=== PATIENT | male | born 1965 | race American Indian/Alaskan Native ===

== ENCOUNTER 2021-12-14 02:18 | Emergency (ER) | payer SELFPAY ==
[2021-12-14] MEDS ORDERED: KETOROLAC 30 MG/1 ML INJ IV ONE (08:11)
[2021-12-14] MEDS ORDERED: dexAMETHasone 20 MG/5 ML VIAL IV ONE (08:11)
[2021-12-14] MEDS ORDERED: ACETAMINOPHEN W/CODEINE 300-30 MG TAB PO ONE (08:11)
--- NOTE | 2021-12-14 08:14 | Emergency Department Report ---
ED Extremity Problem HPI - General Chief complaint: Extremity Injury, Lower Stated complaint: LEG CRAMPS Source: patient Mode of arrival: Stretcher Limitations: No Limitations - History of Present Illness Initial comments: 55-year-old -[place] male with a known past medical history of hypertension presents to the ER today with complaint of pain to the posterior aspect of his left leg. Patient states that the pain sometimes starts in his left calf and radiates up to his buttocks or sometimes starts in his left buttocks and radiates down to his left calf. Patient states that he has been having these symptoms for about 1 week. He denies any particular injury or str enuous activity prior to onset but he did states that a month ago he pulled on something heavy and started with pain in his lower back. He states that the pain eventually resolved and he resumed his regular activity but at that time he did not have any pain down into his left leg. He states that the pain is worse with certain position. He reports some tingling and numbness into his left toes and left lower leg. He denies any left/right leg weakness. Patient denies any associated abdominal pain, chest pain, bowel or bladder incontinence, saddle anesthesia denies any fever or chills. MD Complaint: extremity pain, other (left buttocks pain) -: week(s) (1) - Related Data Previous Rx's Medication Instructions Recorded Last Taken Type Acetaminophen/Codeine [Tylenol 1 tab PO Q6H PRN #12 tab 12/14/21 Unknown Rx /Codeine # 3 tab] methOCARBAMOL [Robaxin TAB] 500 mg PO Q6H PRN #30 tab 12/14/21 Unknown Rx methylPREDNISolone [Medrol 4MG 4 mg PO DAILY #1 pack 12/14/21 Unknown Rx DOSEPAK (21 tabs)] Allergies Allergy/AdvReac Type Severity Reaction Status Date / Time No Known Allergies Allergy Unverified 12/14/21 05:38 ED Review of Systems ROS: Stated complaint: LEG CRAMPS Other details as noted in HPI Comment: All other systems reviewed and negative Constitutional: denies: chills, fever Respiratory: denies: cough, shortness of breath, wheezing Cardiovascular: denies: chest pain, palpitations Gastrointestinal: denies: abdominal pain, nausea, vomiting, diarrhea, constip ation, hematemesis, hematochezia Genitourinary: denies: urgency, dysuria, frequency, hematuria, discharge, testicular pain, testicular mass Musculoskeletal: back pain Skin: denies: rash, lesions Neurological: numbness, abnormal gait. denies: headache, weakness, paresthesias, confusion, vertigo Psychiatric: denies: anxiety, depression, homicidal thoughts, suicidal thoughts Hematological/Lymphatic: denies: easy bleeding, easy bruising, swollen glands ED Past Medical Hx - Past Medical History Previous Medical History?: Yes Hx Hypertension: Yes - Surgical History Past Surgical History?: No - Social History Smoking Status: Never Smoker Substance Use Type: None - Medications Home Medications: Home Medications Medication Instructions Recorded Confirmed Last Taken Type Acetaminophen/Codeine [Tylenol 1 tab PO Q6H PRN #12 tab 12/14/21 Unknown Rx /Codeine # 3 tab] methOCARBAMOL [Robaxin TAB] 500 mg PO Q6H PRN #30 tab 12/14/21 Unknown Rx methylPREDNISolone [Medrol 4MG 4 mg PO DAILY #1 pack 12/14/21 Unknown Rx DOSEPAK (21 tabs)] ED Physical Exam - General Limitations: No Limitations General appearance: alert, in no apparent distress - Neck Neck exam: Present: normal inspection, full ROM. Absent: meningismus - Respiratory Respiratory exam: Present: normal lung sounds bilaterally. Absent: respiratory distress, wheezes, rales, rhonchi - Cardiovascular Cardiovascular Exam: Present: regular rate, normal rhythm, normal heart sounds - GI/Abdominal GI/Abdominal exam: Present: soft. Absent: distended, tenderness, guarding, rebo und - Extremities Exam Extremities exam: Present: normal inspection, full ROM, normal capillary refill. Absent: tenderness, calf tenderness - Expanded Back Exam Expanded Back exam: Absent: saddle anesthesia Back exam: Sciatic Notch Tenderness: Left 1 - Tenderness to palpation. No rash, erythema, bruising or swelling noted. - Neurological Exam Neurological exam: Present: alert, oriented X3, CN II-XII intact, reflexes nor mal, other (Mild limping gait secondary to pain but otherwise normal). Absent: motor sensory deficit - Psychiatric Psychiatric exam: Present: normal affect, normal mood - Skin Skin exam: Present: intact ED Course Vital Signs 12/14/21 12/14/21 12/14/21 02:19 08:27 08:28 Temperature 98 F Pulse Rate 56 L Respiratory 16 16 Rate Blood Pressure 160/90 Blood Pressure [Right] O2 Sat by Pulse Oximetry 12/14/21 08:47 Temperature 98.2 F Pulse Rate 70 Respiratory 18 Rate Blood Pressure Blood Pressure 160/96 [Right] O2 Sat by Pulse 98 Oximetry Critical care attestation.: If time is entered above; I have spent that time in minutes in the direct care of this critically ill patient, excluding procedure time. ED Disposition Clinical Impression: Sciatica of left side Disposition: HOME / SELF CARE / HOMELESS Is pt being admited?: No Does the pt Need Aspirin: No Condition: Stable Instructions: Radicular Pain, Sciatica, [id number] Additional Instructions: I recommend that you take the Medrol Dosepak, the Robaxin and the Tylenol threes as prescribed. I recommend that you follow-up with project specialist for further evaluation including an MRI. Return to the ER if your symptoms changes or worsens in any way. Prescriptions: methylPREDNISolone [Medrol 4MG DOSEPAK (21 tabs)] 4 mg PO DAILY #1 pack methOCARBAMOL [Robaxin TAB] 500 mg PO Q6H PRN #30 tab PRN Reason: Spasms Acetaminophen/Codeine [Tylenol /Codeine # 3 tab] 1 tab PO Q6H PRN #12 tab PRN Reason: Pain , Severe (7-10) Referrals: SAMANTHA COHEN MD [Staff Physician] - 3-5 Days [facility] [Provider Group] - 3-5 Days Forms: Work/School Release Form(ED) Time of Disposition: 08:17
[2021-12-14 08:54] VITALS: BP 160/96
== END 2021-12-14 08:48 | disposition home or self-care (01) ==
LOC: ED 02:18
DX: M54.32 Sciatica, left side (principal); I10 Essential (primary) hypertension
CPT/HCPCS: 96374; 96375; 99283; J1100; J1885